=== PATIENT | male | born 1980 | race African-American/Black ===

== ENCOUNTER 2017-04-25 16:07 | Emergency (ER) | payer OTHER ==
[~2017-04-25] VITALS: Ht 177.8 cm; Wt 88.9 kg
[~2017-04-25 16:07] MED LIST: ACETAMINOPHEN-1 EAC1 PO; BUTALB-APAP-CA1 EACH PO; CIPROFLOXACIN500 M1 PO; FLEXERIL; IBUPROFEN 800800 M1 PO; MOBIC15 MG; NOHOMEMEDICATIONS; OSELB75 PO; PHENERGAN 25 MG25 M1 PO; PROMETHAZINE D480 ML PO; PYRIDIUM200 MG PO; TESSALON PERLE100 MG PO
[2017-04-25] MEDS ORDERED: MOBIC7.5 MG PO (16:16)
[2017-04-25 16:57] LABS: ABSOLUTE EOSINOPHILS 0.1 thou/uL (0.0-0.7); ABSOLUTE LYMPHOCYTES 1.1 thou/uL (0.8-5.3); ABSOLUTE MONOCYTES 0.3 thou/uL (0.0-1.2); ABSOLUTE NEUTROPHILS 2.6 thou/uL (1.6-8.1); BASOPHILS 1.1 %; EOSINOPHILS 2.3 %; HEMATOCRIT 42.4 % (42.0-52.0); HEMOGLOBIN 14.1 gm/dL (14.0-18.0); LYMPHOCYTES 27.2 %; MCHC 33.2 g/dL (28.0-37.0); MCV 84.4 fL (80.0-100.0); MONOCYTES 7.2 %; MPV 9.3 fl. (7.2-11.1); NUCLEATED RBCS 0 /100WBC; PLATELET COUNT* 204 thou/uL (150-400); POLYS 62.2 %; RBC 5.03 mil/uL (4.50-6.00); RDW-CV 14.5 % (10.5-14.5); WBC 4.2 thou/uL (4.0-11.0)
[2017-04-25 17:13] LABS: ANION GAP 8 mmol/L (7-16); BUN 12 mg/dL (7-18); CALCIUM 8.5 mg/dL (8.5-10.1); CHLORIDE 104 mmol/L (98-107); CO2 30 mmol/L (21-32); CREATININE 1.1 mg/dL (0.6-1.3); GLUCOSE 115 mg/dL (70-99); POTASSIUM 3.8 mmol/L (3.5-5.1); SODIUM 142 mmol/L (136-145)
[2017-04-25 17:22] LABS: APTT 29.2 Seconds (25.0-31.3); INR 1.2; PROTIME 11.3 Seconds (9.20-11.50)
[2017-04-25 17:38] LABS: ALBUMIN 3.7 g/dL (3.4-5.0); ALKALINE PHOSPHATASE 71 U/L (46-116); CK-MB MASS < 0.5 ng/mL (<0.5-3.6); LIPASE 131 U/L (73-393); MAGNESIUM 1.8 mg/dL (1.8-2.4); NT-PRO BRAIN NAT PEPTIDE 8 pg/mL (<300); SGOT 16 U/L (15-37); SGPT 20 U/L (30-65); TOTAL BILIRUBIN 0.4 mg/dL (<0.1-1.0); TROPONIN-I LEVEL <0.06 ng/mL (<0.06)
[2017-04-25 17:50] VITALS: BP 126/89
--- NOTE | 2017-04-26 13:22 | EKG ---
[place] [address] ELECTROCARDIOGRAM REPORT Name: MANNYGIOVANI Room: [facility]#: [id number] Admission: 04/25/17 Attend Phys: Discharge: 04/25/17 Date of : 82 Report #: [id number] THIS REPORT FOR: //name// [facility] ED Test Date: 2017-04-25 Test Time: 16:12:01 Pat Name: GIOVANI BRYANT Department: Room: Gender: [employer]cue Craftsman: Marco A EASLEY : 1980 Requested By: Zay Bowen Order Number: [id number] MD: Wayne Torres Measurements Intervals [place] Rate: 59 P: 61 NM: 139 QRS: 6 QRSD: 100 T: 59 QT: 385 QTc: 382 Interpretive Statements Sinus rhythm Left ventricular hypertrophy, bivoltage No previous ECG available for comparison Electronically Signed On 04-26-2017 13:21:47 [employer]IEDOWN OPERATOR by Wayne Torres [email or web address] <ELECTRONICALLY SIGNED> By: Wayne Torres MD, [facility] 04/26/17 1321 1612 1612 Wayne Torres MD, FACC /EPI
== END 2017-04-25 17:50 | disposition home or self-care (01) ==
LOC: M.ERS 16:07
PROVIDERS: Family Medicine
DX: R07.89 Other chest pain (principal); Z88.1 Allergy status to other antibiotic agents; Z88.5 Allergy status to narcotic agent; Z88.8 Allergy status to other drugs, medicaments and biological substances

== ENCOUNTER 2018-05-05 01:52 | Emergency (ER) | payer OTHER ==
[~2018-05-05] VITALS: Ht 177.8 cm; Wt 84.8 kg
[~2018-05-05 01:52] MED LIST changes: +MOBIC7.5 MG PO
[2018-05-05] MEDS ORDERED: LISINOPRIL5 MG (02:03)
[2018-05-05] MEDS ORDERED: FLEXERIL PO (03:37)
[2018-05-05] MEDS ORDERED: BUTALB-APAP-CA1 EACH PO (03:37)
[2018-05-05 04:12] VITALS: BP 109/64
== END 2018-05-05 03:50 | disposition home or self-care (01) ==
LOC: M.ERS 01:52
DX: S06.0X0A Concussion without loss of consciousness, initial encounter (principal); Z88.1 Allergy status to other antibiotic agents; Z88.6 Allergy status to analgesic agent; Z91.048 Other nonmedicinal substance allergy status; Z98.890 Other specified postprocedural states; W22.8XXA Striking against or struck by other objects, initial encounter; Y92.89 Other specified places as the place of occurrence of the external cause; Y93.89 Activity, other specified; Y99.8 Other external cause status

== ENCOUNTER 2019-03-15 02:59 | Emergency (ER) | payer OTHER ==
[~2019-03-15] VITALS: Ht 180.3 cm; Wt 85.7 kg
[~2019-03-15 02:59] MED LIST changes: +FLEXERIL PO; +LISINOPRIL5 MG
[2019-03-15 03:43] LABS: ABSOLUTE BASOPHILS 0.1 thou/uL (0.0-0.2); ABSOLUTE EOSINOPHILS 0.2 thou/uL (0.0-0.7); ABSOLUTE MONOCYTES 0.6 thou/uL (0.0-1.2); ABSOLUTE NEUTROPHILS 2.1 thou/uL (1.6-8.1); BASOPHILS 1.1 %; EOSINOPHILS 3.8 %; HEMATOCRIT 40.5 % (42.0-52.0); HEMOGLOBIN 13.9 gm/dL (14.0-18.0); LYMPHOCYTES 41.1 %; MCH 28.5 pg (26.0-34.0); MCHC 34.3 g/dL (28.0-37.0); MCV 83.2 fL (80.0-100.0); MONOCYTES 11.3 %; MPV 8.6 fl. (7.2-11.1); NUCLEATED RBCS 0 /100WBC; PLATELET COUNT* 212 thou/uL (150-400); POLYS 42.7 %; RBC 4.86 mil/uL (4.50-6.00); RDW-CV 14.1 % (10.5-14.5)
[2019-03-15 03:53] LABS: CALCIUM 8.6 mg/dL (8.5-10.1); CREATININE 1.1 mg/dL (0.6-1.3); POTASSIUM 3.4 mmol/L (3.5-5.1)
[2019-03-15 04:02] LABS: ALBUMIN 3.7 g/dL (3.4-5.0); MAGNESIUM 1.9 mg/dL (1.8-2.4); TOTAL BILIRUBIN 0.4 mg/dL (<0.1-1.0); TOTAL PROTEIN 7.2 g/dL (6.4-8.2)
[2019-03-15 04:08] LABS: INFLUENZA A ANTIGEN Negative (Negative); INFLUENZA B ANTIGEN Negative (Negative)
[2019-03-15 04:10] VITALS: BP 112/74
[2019-03-15] MEDS ORDERED: VENTOLIN HFA 1818 GM INH (04:18)
--- NOTE | 2019-03-15 10:07 | EKG ---
[place] [address] ELECTROCARDIOGRAM REPORT Name: MANNYGIOVANI Елена Room: [facility]#: [id number] Admission: 03/15/19 Attend Phys: Discharge: 03/15/19 Date of : 82 Report #: [id number] THIS REPORT FOR: //name// [facility] ED Test Date: 2019-03-15 Test Time: 03:24:38 Pat Name: GIOVANI BRYANT Department: Room: Gender: M Medical Billing Representative: : 1980 Requested By: Black Manning Order Number: [id number] MD: Juan A Pearson Measurements Intervals [place] Rate: 52 P: 63 ND: 152 QRS: -4 QRSD: 106 T: 43 QT: 427 QTc: 397 Interpretive Statements Sinus bradycardia RSR' in V1 or V2, probably normal variant Probable left ventricular hypertrophy ST elev, probable normal early repol pattern Compared to ECG 04/25/2017 16:12:01 no change Electronically Signed On 03-15-2019 10:06:54 ROLL FORGER by Juan A Pearson [email or web address] <ELECTRONICALLY SIGNED> By: Juan A Pearson MD, [facility] 03/15/19 1006 [id number] 0324 Juan A Pearson MD, [facility] /EPI
== END 2019-03-15 04:31 | disposition home or self-care (01) ==
LOC: M.ERS 02:59
PROVIDERS: Emergency Medicine Emergency Medical Services
DX: J40 Bronchitis, not specified as acute or chronic (principal); Z88.1 Allergy status to other antibiotic agents; Z88.6 Allergy status to analgesic agent; Z88.8 Allergy status to other drugs, medicaments and biological substances